=== PATIENT | female | born 1975 | race Caucasian/White ===

== ENCOUNTER 2022-09-01 09:06 | Emergency (ER) | payer OTHER ==
[2022-09-01] MEDS ORDERED: Sodium Chloride 0.9% 1,000 ML IV SCH (09:45)
[2022-09-01 10:13] VITALS: PULSE 69
[2022-09-01 10:16] LABS: ESTIMATED GFR 111 mL/min (>60)
[2022-09-01] MEDS ORDERED: Potassium Chloride 10 MEQ Tab.ER PO ONE (10:35)
[2022-09-01] MEDS ORDERED: Ondansetron 4 MG/2 ML SDV IVPUSH ONE (11:27)
[2022-09-01 12:33] VITALS: BP 137/55
== END 2022-09-01 12:30 | disposition home or self-care (01) ==
LOC: LB.ED 09:06
DX: T58.91XA Toxic effect of carbon monoxide from unspecified source, accidental (unintentional), initial encounter (principal); Z79.899 Other long term (current) drug therapy
CPT/HCPCS: 36415; 36600; 70450; 71045; 80053; 82803; 85025; 96361; 96374; 99284; A9270; J2405; J7030